=== PATIENT | male | born 1990 | race Native Hawaiian/Other Pacific Islander ===

== ENCOUNTER 2017-03-05 18:12 | Outpatient (CLI) | payer OTHER | END 2017-03-05 18:27 | disposition short-term general hospital (02) | LOC: AMB 18:12 | DX: R10.84 Generalized abdominal pain (principal); K62.5 Hemorrhage of anus and rectum; R11.2 Nausea with vomiting, unspecified | CPT/HCPCS: A0425; A0427 ==